=== PATIENT | male | born 1960 | race Caucasian/White ===

== ENCOUNTER 2021-09-25 16:03 | Inpatient (IN) | payer OTHER ==
[~2021-09-25] VITALS: Ht 182.9 cm; Wt 79.7 kg
[2021-09-25 16:14] LABS: Source, Urine Clean Catch
[2021-09-25 16:18] LABS: Bilirubin, Urine Neg (Neg); Blood, Urine Neg (Neg); Color, Urine Yellow (P-Yellow); Glucose Qualitative, Urine Neg (Neg); Ketones, Urine 2+ (Neg); Leukocyte Esterase, Urine Neg (Neg); Nitrite, Urine Neg (Neg); Protein, Urine 1+ (Neg); Urobilinogen, Urine NORM (Normal)
[2021-09-25] MEDS ORDERED: TRAZ100 PO ×2 (16:20)
[2021-09-25 16:26] LABS: Appearance, Urine Hazy (Clear); Bacteria Mod /hpf; Mucus Mod (0-Heavy); Red Blood Cells, Urine 0-2 /hpf (0-2); Squamous Epithelial Cells Few /hpf (Few); White Blood Cells, Urine 0-2 /hpf (0-5)
[2021-09-25 16:47] LABS: BASOPHILS ABSOLUTE AUTO 0.04 K/mm3 (0.00-0.23); BASOPHILS PERCENT AUTO 0 % (0-2); EOSINOPHILS ABSOLUTE AUTO 0.07 K/mm3 (0.00-0.68); EOSINOPHILS PERCENT AUTO 0 % (0-6); Hemoglobin 12.8 g/dL (13.5-17.5); IMMATURE GRAN ABSOLUTE AUTO 0.04 K/mm3 (0.00-0.10); IMMATURE GRAN PERCENT AUTO 0 % (0-1); LYMPHOCYTES ABSOLUTE AUTO 1.64 K/mm3 (0.84-5.20); LYMPHOCYTES PERCENT AUTO 10 % (21-46); MONOCYTES ABSOLUTE AUTO 1.13 K/mm3 (0.16-1.47); MONOCYTES PERCENT AUTO 7 % (4-13); Mean Corpuscular HGB 31.6 pg (26.0-34.0); Mean Corpuscular HGB Conc 34.6 g/dL (31.5-36.5); Mean Corpuscular Volume 91 fL (80-100); Mean Platelet Volume 10.2 fL (9.1-12.4); NEUTROPHILS ABSOLUTE AUTO 13.77 K/mm3 (1.96-9.15); NEUTROPHILS PERCENT AUTO 83 % (41-73); Platelet Count 206 K/mm3 (150-400); RDW Standard Deviation 40.3 fL (35.1-46.3); Red Blood Cell Count 4.05 M/mm3 (4.30-5.90); White Blood Cell Count 16.69 K/mm3 (4.00-11.30)
[2021-09-25 16:54] LABS: Albumin, Blood 4.3 g/dL (3.4-5.0); Albumin/Globulin Ratio 1.4 (0.8-1.8); Bun/Creatinine Ratio 18.4 (12.0-20.0); Calcium, Blood 9.4 mg/dL (8.5-10.1); Creatinine, Blood 0.87 mg/dL (0.60-1.20); Potassium, Blood 3.6 mmol/L (3.5-5.5); Total Protein, Blood 7.3 g/dL (6.4-8.2)
[2021-09-25 17:35] LABS: U Amphetamine Screen Not Detected; U Barbituate Screen Not Detected; U Benzodiazapine Screen Not Detected; U Cocaine Screen Not Detected; U Methadone Screen Not Detected; U Methamphetamine Screen Not Detected
[2021-09-25 17:36] LABS: U Buprenorphine Screen Not Detected; U Cannabinoids Screen Not Detected; U Opiates Screen Not Detected; U Oxycodone Screen Not Detected; U Phencyclidine Screen Not Detected; U Propoxyphene Screen Not Detected
[2021-09-25 18:08] LABS: Influenza A, PCR NEGATIVE (NEGATIVE); Influenza B, PCR NEGATIVE (NEGATIVE); Resp Syncytial Virus, PCR NEGATIVE (NEGATIVE); SARS-Cov-2 (COVID-19) PCR, MMC NEGATIVE (NEGATIVE)
--- NOTE | 2021-09-25 22:41 | NUR ---
TELEPHONE SBAR RECIEVED FROM GAYLA ARITA FROM THE ED. PT ARRIVED ON FLOOR, ALTERED. PT MOVED OVER FROM [facility] WITH [facility]. PT IS OREINTED TO SELF, UNABLE TO ANSWER QUESTIONS. MD AT BEDSIDE ASSESSING PATIENT. BED ALARM IN PLACE.
--- NOTE | 2021-09-26 05:17 | NUR ---
PT UNABLE TO FOLLOW COMMANDS, CRAWLING OUT OF BED AND PULLING LINES. PT FOUND HALF OUT OF BED WITH IV OUT AT 2030. POSY VEST PLACED AND MEDICATIONS GIVEN. PT WARM TO TOUCH TEMP OF 100.5, TYLENOL SUPPOSITORY GIVEN AT 0430. AFTER TYLENOL PT IS MORE CLEAR WITH HIS SPEECH, PT REPORTS HE LIVES IN [place] AND HAS BEEN LIVING ON THE STRE[address]. PT DENIES DRUGS OR ALCOHOL AND BELIEVES IT IS AUGUST. PT ABLE TO HAVE LONGER CONVERSATIONS BUT CONTINUES TO BE CONFUSED.
[2021-09-26 05:33] LABS: BASOPHILS ABSOLUTE AUTO 0.05 K/mm3 (0.00-0.23); BASOPHILS PERCENT AUTO 1 % (0-2); EOSINOPHILS PERCENT AUTO 2 % (0-6); Hematocrit 35.6 % (37.0-53.0); IMMATURE GRAN ABSOLUTE AUTO 0.03 K/mm3 (0.00-0.10); IMMATURE GRAN PERCENT AUTO 0 % (0-1); LYMPHOCYTES ABSOLUTE AUTO 2.02 K/mm3 (0.84-5.20); LYMPHOCYTES PERCENT AUTO 20 % (21-46); MONOCYTES ABSOLUTE AUTO 0.72 K/mm3 (0.16-1.47); MONOCYTES PERCENT AUTO 7 % (4-13); Mean Corpuscular HGB 31.1 pg (26.0-34.0); Mean Corpuscular HGB Conc 33.7 g/dL (31.5-36.5); Mean Corpuscular Volume 92 fL (80-100); Mean Platelet Volume 9.9 fL (9.1-12.4); NEUTROPHILS ABSOLUTE AUTO 7.09 K/mm3 (1.96-9.15); NEUTROPHILS PERCENT AUTO 70 % (41-73); Platelet Count 189 K/mm3 (150-400); RDW Coefficient Variation 12.1 % (11.7-14.2); RDW Standard Deviation 41.4 fL (35.1-46.3); Red Blood Cell Count 3.86 M/mm3 (4.30-5.90); White Blood Cell Count 10.11 K/mm3 (4.00-11.30)
[2021-09-26 06:00] LABS: Bun/Creatinine Ratio 16.6 (12.0-20.0); Calcium, Blood 8.5 mg/dL (8.5-10.1); Creatinine, Blood 0.66 mg/dL (0.60-1.20); Potassium, Blood 3.5 mmol/L (3.5-5.5)
[2021-09-26] MEDS ORDERED: POLY500 PO ×2 (12:12)
[2021-09-26] MEDS ORDERED: DULO60 PO ×2 (12:13)
[2021-09-26] MEDS ORDERED: ERGO50000 PO ×2 (12:13)
[2021-09-26] MEDS ORDERED: FERSU300 PO ×2 (12:14)
[2021-09-26] MEDS ORDERED: GABA300 PO ×4 (12:14→12:38)
[2021-09-26] MEDS ORDERED: Keppra750 MG PO ×2 (12:14)
[2021-09-26] MEDS ORDERED: HALOPERIDOL10 M1 PO ×2 (12:14)
[2021-09-26] MEDS ORDERED: LITH300C PO ×2 (12:15)
[2021-09-26] MEDS ORDERED: MELA3 PO ×2 (12:15)
[2021-09-26] MEDS ORDERED: Naltrexone HCl50 MG PO ×2 (12:16)
[2021-09-26] MEDS ORDERED: NIAC500 PO ×2 (12:16)
[2021-09-26] MEDS ORDERED: PRAZ2 PO ×2 (12:16)
[2021-09-26] MEDS ORDERED: QUETIAPINE FUM400 M2 PO ×2 (12:17)
[2021-09-26] MEDS ORDERED: Vitamin B Comple1 EA PO ×2 (12:17)
[2021-09-26] MEDS ORDERED: MIRALAX17 GM (12:18)
[2021-09-26] MEDS ORDERED: [UNRECOGNIZED DRUG - CODE] PO ×2 (12:26)
--- NOTE | 2021-09-26 12:46 | NUR ---
PT HISTORY/MEDICATIONS- CALLED JANINA MERRILL WHO REPORTS PT LIVES INDEP SO THEY DO NOT HAVE HISTORY OR MEDICATIONS ON PATIENT. CALLED AND SPOKE WITH [facility] WHO STATES PT IS A [place] PATIENT. CALLED AND SPOKE WITH [facility] NURSE WHO WAS ABLE TO GIVE ME A LIST OF HOME MEDICATIONS FOR PATIENT THAT WAS UPDATED IN THE COMPUTER. PER [facility] PT IS NOT CURRENTLY ASSIGNED TO A PROVIDER BUT DOES APPEAR TO HAVE A COLONOSCOPY BOWEL PREP FOR 10/08/21. HISTORY OF SCHIZOAFFECTIVE, INHALANT INTOXICATION DELIRIUM, ALCOHOLIC FATTY LIVER, BPH, DISSASOCIATIVE DISORDER, PROLOGNED QT INTERVAL, HEARING LOSS, CONSTIPATION, BIPOLAR 2, MAJOR DEPRESSIVE, CIRRHOSIS, NEUROPATHY, ASCITES, PTSD, HLD, SEIZURES. WILL UPDATE
--- NOTE | 2021-09-26 19:04 | NUR ---
SHIFT SUMMARY PATIENT A&O TO SELF. PATIENT UNABLE TO ANSWER QUESTIONS ABOUT HISTORY. WILL HAVE RANDOM THOUGHTS DURING CONVERSTATION. HAS SLIGHT TREMOR. DENIES N/V, PAIN, MCCRARY. VEST RESTRAINT IN PLACE. PATIENT CONTINUALLY ATTEMPTS TO GET OUT OF BED. NEEDS ASSITANCE USING URINAL. PATIENT ABLE TO DRINK WATER INDEPENDENTLY BUT IS A FEEDER FOR MEALS. RECEIVING IV FLUIDS. PLACED ON CONTACT ISOLATION FOR PINK EYE. BED IN LOW POSITION WITH BED ALARM ON. WILL CONTINUE TO MONITOR.
--- NOTE | 2021-09-27 03:22 | NUR ---
SHIFT SUMMARY PT CONTINUES TO BE CONFUSED, NONSENSICAL SPEECH. HE ATTEMPTS TO GET OOB MULTIPLE TIMES THIS SHIFT, PT IS UNSTEADY AND A HIGH FALL RISK. AYAAN VEST STILL WARRANTED. PT STARTED BACK ON HIS PSYCH MEDS THIS SHIFT. PT INCONTINENT, HE WILL PULL ATTENDS APART AND VOID ALL OVER THE BED. TELE IN PLACE WITH NO ACUTE CHANGES. VITALS STABLE. BED IN LOWEST POSITION, CALL LIGHT WITHIN REACH.
--- NOTE | 2021-09-27 19:39 | NUR ---
SHIFT SUMMARY PATIENT BEGAN SHIFT VERY SLEEPY, CONFUSED, INCONT AND UNABLE TO ANSWER QUESTIONS. BRIEFLY WAKING UP TO TAKE HIS AM MEDS. AROUND 1400 PATIENT WOKE UP AND WAS MORE ALERT. ABLE TO ANSWER QUESTIONS. ASKING FOR LUNCH AND TO GET UP TO GO TO THE RESTROOM. RESTRAINTS D/C'D. PATIENT STILL WEAK AND WAS SBA TO BSC. PATIENT DID C/O BURNING DURING URINATION. URINE CULTURE ALREADY SENT THIS AM. RECEIVING IV FLUIDS. REPORT GIVEN TO ONCOMING RN.
--- NOTE | 2021-09-28 05:23 | NUR ---
PT GETS OUT OF BED SPORADICALLY TO USE BEDSIDE COMMODE. DOES NOT USE CALL APPROPRIATELY. PT SBA TO BSC. PT ALERT, ORIENTATED, AND COMPLIANT WITH CARE AND TAKING MEDICATIONS. PT SLEPT MOST OF NIGHT. NO ADVERSE EVENTS ON SHAREPOINT ANALYST.
--- NOTE | 2021-09-28 07:30 | NUR ---
ASSUMED CARE: PT RESTING IN BED AT THIS TIME. NO ACUTE NEEDS OR CONCERNS.
--- NOTE | 2021-09-28 10:55 | NUR ---
PT SLOW TO RESPOND. LETHARGIC BUT EASILY ROUSED. BED ALARM DUE TO IMPULISVE.
--- NOTE | 2021-09-28 17:44 | NUR ---
SHIFT SUMMARY: PT HAS REMAINED LETHARGIC AND SLOW TO RESPOND BUT EASY TO ROUSE. AMBULATED TO SHOWER TODAY WITH MINIMAL ASSISTANCE. CONTINUING TO MONITOR MENTAL STATUS TO DETERMINE SAFE DISCHARGE PLAN. NO ACUTE NEEDS AT THIS TIME.
--- NOTE | 2021-09-29 05:49 | NUR ---
SHIFT SUMMARY NOC: PT VERY SLEEPY, SLEPT ALL SHIFT. PT IS AROUSABLE, ANSWERS QUESTIONS APPROPRIATELY, COMPLIANT WITH CARE. PT SBA TO BATHROOM. PT IS FIXATED ON FINDING LICENSE AND LILIYA CARD BEFORE DISCHARGE. NO ADVERSE EVENTS.
[2021-09-29 06:44] LABS: BASOPHILS ABSOLUTE AUTO 0.03 K/mm3 (0.00-0.23); BASOPHILS PERCENT AUTO 1 % (0-2); EOSINOPHILS ABSOLUTE AUTO 0.28 K/mm3 (0.00-0.68); EOSINOPHILS PERCENT AUTO 5 % (0-6); Hematocrit 34.5 % (37.0-53.0); Hemoglobin 11.5 g/dL (13.5-17.5); IMMATURE GRAN ABSOLUTE AUTO 0.01 K/mm3 (0.00-0.10); IMMATURE GRAN PERCENT AUTO 0 % (0-1); LYMPHOCYTES ABSOLUTE AUTO 1.97 K/mm3 (0.84-5.20); LYMPHOCYTES PERCENT AUTO 35 % (21-46); MONOCYTES ABSOLUTE AUTO 0.43 K/mm3 (0.16-1.47); MONOCYTES PERCENT AUTO 8 % (4-13); Mean Corpuscular HGB 31.9 pg (26.0-34.0); Mean Corpuscular HGB Conc 33.3 g/dL (31.5-36.5); Mean Corpuscular Volume 96 fL (80-100); NEUTROPHILS PERCENT AUTO 52 % (41-73); Platelet Count 168 K/mm3 (150-400); RDW Coefficient Variation 12.2 % (11.7-14.2); RDW Standard Deviation 43.1 fL (35.1-46.3); Red Blood Cell Count 3.61 M/mm3 (4.30-5.90); White Blood Cell Count 5.62 K/mm3 (4.00-11.30)
[2021-09-29 07:09] LABS: Albumin/Globulin Ratio 1.2 (0.8-1.8); Bilirubin, Total 0.5 mg/dL (0.1-1.0); Bun/Creatinine Ratio 13.4 (12.0-20.0); Calcium, Blood 8.3 mg/dL (8.5-10.1); Creatinine, Blood 0.75 mg/dL (0.60-1.20); Globulin, Blood 2.4 g/dL (2.2-4.0); Magnesium, Blood 2.1 mg/dL (1.6-2.4); Potassium, Blood 3.6 mmol/L (3.5-5.5); Total Protein, Blood 5.4 g/dL (6.4-8.2)
--- NOTE | 2021-09-29 11:36 | NUR ---
PT FLAT AND SOMNOLENT. A/O X2-3. FORGETFUL. DOESNT KNOW WHERE HE LIVES, DOESNT KNOW IN HOSPITAL. KNOWS SELF AND MONTH. H/R REGULAR. NSR PER ADMITTING CLERK. NO MURMUR NOTED. ON ROOM AIR. BREATHING IS EASY AND UNLABORED. LUNGS CLEAR. PT AMBULATED TO RESTROOM INDEPENDENTLY WITH SBA. BED IN LOW POSITION, CALL LIGHT IN REACH, CALLS APPROPRIATLY. WILL CONTINUE TO MONITOR.
--- NOTE | 2021-09-29 18:31 | NUR ---
PT COOPERATIVE WITH CARE. SOMNLENT. A/O X2-3. KNOWS SELF, AND MONTH. CONFUSED AT TIMES. FREQUENTLY ASKS WHERE HE LIVES. ON TELE. NSR PER SILK TRIMMER. LUNGS CLEAR. ON ROOM AIR. BREATHING IS EASY AND UNLABORED. PT AMBULATES INDEPENDENTLY TO RESTROOM. PT REPORTS NO BM. BED IN LOW POSITION, CALL LIGHT IN REACH, CALLS APPROPRIATLEY.
--- NOTE | 2021-09-29 18:38 | NUR ---
AGRE WITH STUDENT NOTES AND DOCUMENTATIONS
[2021-09-30 12:07] LABS: Influenza A, PCR NEGATIVE (NEGATIVE); Influenza B, PCR NEGATIVE (NEGATIVE); Resp Syncytial Virus, PCR NEGATIVE (NEGATIVE); SARS-Cov-2 (COVID-19) PCR, MMC NEGATIVE (NEGATIVE)
--- NOTE | 2021-09-30 17:28 | NUR ---
SHIFT SUMMARY PATIENT IS ALERT AND ORIENTED X3-4. PATIENT HAD A FLAT AFFECT MOST OF SHIFT. PATIENT RESTED MOST OF SHIFT. PATIENT IS IND IN ROOM. PATIENT IS ON TELE WITH NO INCIDENTS. NO ACUTE EVENTS THIS SHIFT. VITAL SIGNS REVIEWED. PATIENT IS DISCHARGED TO PATIENTS [facility] FACILITY.
[2021-10-02] MEDS ORDERED: ONDA4ODT MM (14:07)
== END 2021-09-30 17:35 | disposition home or self-care (01) | DRG 92 ==
LOC: ER 16:03 → EDBD 16:04 → MEDS 16:04
PROVIDERS: Emergency Medicine; Internal Medicine; Student in an Organized Health Care Education/Training Program; ADMIT Family Medicine
DX: G92.8 Other toxic encephalopathy (principal); F10.239 Alcohol dependence with withdrawal, unspecified; Z20.822 Contact with and (suspected) exposure to COVID-19; D72.829 Elevated white blood cell count, unspecified; T50.905A Adverse effect of unspecified drugs, medicaments and biological substances, initial encounter; R50.9 Fever, unspecified; H10.9 Unspecified conjunctivitis; D64.9 Anemia, unspecified; R00.0 Tachycardia, unspecified; G40.909 Epilepsy, unspecified, not intractable, without status epilepticus; N40.0 Benign prostatic hyperplasia without lower urinary tract symptoms; I10 Essential (primary) hypertension; Z88.8 Allergy status to other drugs, medicaments and biological substances; Z79.899 Other long term (current) drug therapy; Y90.0 Blood alcohol level of less than 20 mg/100 ml
CPT/HCPCS: 0241U; 36415; 70450; 71045; 80048; 80053; 81001; 82140; 83605; 83735; 84145; 84443; 85025; 87040; 87086; 93005; 93010; 96361; 96365; 96366; 96367; 96372; 96374; 96376; 99285-25; A9270; G0378; G0480; J0696; J1650; J2060; J3411; J7030; J7120

== ENCOUNTER 2021-10-03 10:56 | Emergency (ER) | payer OTHER ==
[~2021-10-03] VITALS: Ht 182.9 cm; Wt 81.7 kg
[~2021-10-03 10:56] MED LIST: DULO60 PO; ERGO50000 PO; FERSU300 PO; GABA300 PO; HALOPERIDOL10 M1 PO; Keppra750 MG PO; LITH300C PO; MELA3 PO; MIRALAX17 GM; NIAC500 PO; Naltrexone HCl50 MG PO; ONDA4ODT MM; POLY500 PO; PRAZ2 PO; QUETIAPINE FUM400 M2 PO; TRAZ100 PO; Vitamin B Comple1 EA PO; [UNRECOGNIZED DRUG - CODE] PO
[2021-10-03 11:25] LABS: BASOPHILS ABSOLUTE AUTO 0.04 K/mm3 (0.00-0.23); BASOPHILS PERCENT AUTO 1 % (0-2); EOSINOPHILS ABSOLUTE AUTO 0.08 K/mm3 (0.00-0.68); EOSINOPHILS PERCENT AUTO 1 % (0-6); Hematocrit 38.8 % (37.0-53.0); Hemoglobin 13.1 g/dL (13.5-17.5); IMMATURE GRAN ABSOLUTE AUTO 0.01 K/mm3 (0.00-0.10); IMMATURE GRAN PERCENT AUTO 0 % (0-1); LYMPHOCYTES ABSOLUTE AUTO 1.84 K/mm3 (0.84-5.20); LYMPHOCYTES PERCENT AUTO 23 % (21-46); MONOCYTES ABSOLUTE AUTO 0.56 K/mm3 (0.16-1.47); MONOCYTES PERCENT AUTO 7 % (4-13); Mean Corpuscular HGB 31.2 pg (26.0-34.0); Mean Corpuscular HGB Conc 33.8 g/dL (31.5-36.5); Mean Corpuscular Volume 92 fL (80-100); Mean Platelet Volume 10.1 fL (9.1-12.4); NEUTROPHILS ABSOLUTE AUTO 5.48 K/mm3 (1.96-9.15); NEUTROPHILS PERCENT AUTO 68 % (41-73); Platelet Count 212 K/mm3 (150-400); RDW Coefficient Variation 11.9 % (11.7-14.2); White Blood Cell Count 8.01 K/mm3 (4.00-11.30)
[2021-10-03 11:44] LABS: Albumin, Blood 3.8 g/dL (3.4-5.0); Albumin/Globulin Ratio 1.4 (0.8-1.8); Bilirubin, Total 0.5 mg/dL (0.1-1.0); Bun/Creatinine Ratio 23.8 (12.0-20.0); Calcium, Blood 8.9 mg/dL (8.5-10.1); Creatinine, Blood 0.63 mg/dL (0.60-1.20); Globulin, Blood 2.8 g/dL (2.2-4.0); Potassium, Blood 4.1 mmol/L (3.5-5.5); Total Protein, Blood 6.6 g/dL (6.4-8.2)
== END 2021-10-03 13:37 | disposition home or self-care (01) ==
LOC: ER 10:56
PROVIDERS: Emergency Medicine
DX: R55 Syncope and collapse (principal); R07.89 Other chest pain; F17.210 Nicotine dependence, cigarettes, uncomplicated; F41.9 Anxiety disorder, unspecified; F32.A Depression, unspecified; Z79.899 Other long term (current) drug therapy; Z88.8 Allergy status to other drugs, medicaments and biological substances
CPT/HCPCS: 36415; 71045; 80053; 84484; 85025; 93005; 93010; A9270